=== PATIENT | female | born 2000 | race African-American/Black ===

== ENCOUNTER 2021-05-31 22:54 | Inpatient (IN) | payer OTHER, SELFPAY ==
[2021-05-31] VITALS (11 sets, daily range): BP systolic 136–202; BP diastolic 107–159; PULSE 115–166; O2SAT 84–100
[2021-05-31] MEDS: LABETALOL HCL INJ 100 MG/20 ML VIAL (23:00)
[2021-05-31 23:12] LABS: Basophils Absolute Auto 0.1 K/mm3 (0.0-0.1); Basophils Percent Auto 0.3 % (0.2-1.2); Eosinophils Absolute Auto 0.1 K/mm3 (0-0.3); Eosinophils Percent Auto 0.7 % (0-4.4); Hematocrit 44.6 % (37.0-47.0); Hemoglobin 13.7 g/dL (12.0-15.0); Immature Granulocyte Absolute 0.08 K/mm3 (0.00-0.031); Immature Granulocyte Percent A 0.5 % (0-0.5); Lymphocytes Absolute Auto 4.63 K/mm3 (0.9-3.2); Lymphocytes Percent Auto 29.6 % (18.3-44.2); Mean Corpuscular HGB Conc 30.7 g/dl (32-36); Mean Corpuscular Hemoglobin 25.9 pg (26-34); Mean Corpuscular Volume 84.5 fl (80-100); Mean Platelet Volume 11.9 fl (7.4-10.4); Monocytes Absolute Auto 1.5 K/mm3 (0.1-0.6); Monocytes Percent Auto 9.7 % (2.6-8.5); Neutrophils Absolute Auto 9.3 K/mm3 (1.3-6.7); Neutrophils Percent Auto 59.2 % (45.5-73.1); Nucleated Red Blood Cells Perc 0.1 % (0.0-0.2); Platelet Count Result 143 k/mm3 (150-375); Red Blood Count 5.28 M/mm3 (4.2-5.4); Red Cell Distribution Width 16.8 % (11.5-14.5); White Blood Count 15.7 K/mm3 (4.5-10.0)
[2021-05-31 23:22] LABS: INR 0.9; Prothrombin Time 12.1 Seconds (11.1-14.7)
[2021-05-31 23:23] LABS: Partial Thromboplastin Time 27.1 SECONDS (22.3-36.8)
[2021-06-01] VITALS (70 sets, daily range): BP systolic 136–176; BP diastolic 83–118; PULSE 67–94; RESP 14–20; TEMP 36.1–36.8; O2SAT 99–100; BMI 35.7
[2021-06-01 00:04] LABS: HIV 1/2 Ab P24 Ag Result Negative (Negative)
[2021-06-01 00:15] LABS: Albumin Level 3.1 g/dL (3.5-5.1); Alkaline Phosphatase 267 U/L (38-126); Anion Gap 15 mmol/L (8-16); Aspartate Amino Transferase 73 U/L (14-36); Bilirubin,Total 0.4 mg/dL (0.2-1.3); Blood Urea Nitrogen 9 mg/dL (7-17); Calcium 8.7 mg/dL (8.4-10.2); Carbon Dioxide 13 mmol/L (22-30); Chloride 107 mmol/L (98-107); Estimated Glomerular Filt Rate > 60; Glucose 113 mg/dL (65-110); Potassium 3.5 mmol/L (3.4-5.0); Sodium 135 mmol/L (137-145)
[2021-06-01 00:20] LABS: Alanine Aminotransferase 48 U/L (4-35)
[2021-06-01] MEDS: KETOROLAC 30 MG/ML VIAL (*BKC) IV PUSH ×3 (00:27→14:51)
--- NOTE | 2021-06-01 00:39 | PM.IMHP ---
H&P: HPI History of Present Illness Date/Time: 06/01/21 00:39 Chief Complaint: eclampsia insufficient care intrauterine at term Narrative: 20 yo at 39w2d who presents to the ED with contractions. Pt was transferred to L&D. Upon arrival to L&D pt had a witnessed seizure. Pt BP was noted to be severe range. Pt has a history of 2 prior c-sections. 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 That subsequently at 11 days of life. Pt did not have any elevated BP in her outpatient visits this . Pt only had 4 visits in this . Her last visit was at 25w3d. Pt received her limited care in [place], [place]. Review of Systems Cardiovascular: Cardiovascular: Denies chest pain, Denies leg edema, Denies palpitations, Denies dyspnea and Denies dyspnea on exertion Respiratory: Respiratory: Denies cough, Denies dyspnea and Denies dyspnea on exertion Gastrointestinal: Gastrointestinal: Denies abdominal pain, Denies constipation, Denies diarrhea, Denies nausea and Denies vomiting Genitourinary: Genitourinary: Denies hematuria, Denies urinary frequency, Denies dysuria, Denies pelvic pain, Denies urinary incontinence and Denies vaginal discharge Neurologic: Reports system reviewed and no additional complaints, except as documented Psychiatric: Psychiatric: Reports no additional psychiatric complaints Endocrine: Endocrine: Denies palpitations Meds Vital Signs Vital Signs - 24 hr 05/31/21 22:43 05/31/21 22:46 05/31/21 22:47 Pulse Rate Blood Pressure 161/140 H Pulse Oximetry 84 L 100 100 05/31/21 22:48 05/31/21 22:52 05/31/21 22:56 Pulse Rate 115 H 122 H Blood Pressure 202/159 H 136/107 H Pulse Oximetry 100 05/31/21 22:57 05/31/21 23:01 05/31/21 23:04 Pulse Rate Blood Pressure Pulse Oximetry 100 100 100 05/31/21 23:09 05/31/21 23:10 Pulse Rate 147 H Blood Pressure 186/132 H Pulse Oximetry 100 Exam Const: General: no acute distress Eyes: EOM: EOMs intact bilaterally Neck: Neck: supple Thyroid: thyroid normal Chest: Breast/axilla inspection: normal inspection of the breasts Breast/axilla palpation: normal palpation of the breasts, normal palpation of the axillae and no axillary lymphadenopathy Resp: Effort & Inspection: normal respiratory effort Auscultation: clear to auscultation bilaterally Cardio: Rate: regular rate Rhythm: regular rhythm GI: Inspection: non-distended and other (Gravid) GI Palp: Yes Soft to palpation, No Tenderness to palpation present (GI) and No Guarding due to palpation present (GI) Auscultation: normal bowel sounds : Speculum Exam - Vagina: No vaginal bleeding OB/external & speculum: external exam normal; No vaginal bleeding Skin: General skin exam: normal color and no rashes or lesions noted Neuro: Cognition (Neuro): normal cognition Speech: normal speech Extrem: General: normal to inspection Psych: Mental Status: mental status grossly normal Affect: normal affect H&P: Results Labs Labs: Short CBC 05/31/21 Range/Units 22:58 WBC 15.7 H (4.5-10.0) K/mm3 Hgb 13.7 (12.0-15.0) g/dL Hct 44.6 (37.0-47.0) % Plt Count 143 L (150-375) k/mm3 BMP 05/31/21 22:58 Sodium 135 L Potassium 3.5 Chloride 107 Carbon Dioxide 13 L BUN 9 Creatinine 1.00 Glucose 113 H Calcium 8.7 Liver Function 05/31/21 Range/Units 22:58 Total Bilirubin 0.4 (0.2-1.3) mg/dL AST 73 H (14-36) U/L ALT 48 H (4-35) U/L Alkaline Phosphatase 267 H (38-126) U/L Albumin 3.1 L (3.5-5.1) g/dL Assessment and Plan Assessment and plan (1) Supervision of high risk , unspecified, third trimester: Code(s): O09.93 - Supervision of high risk , unspecified, third trimester Status: Acute Assessment and Plan: 20 yo at 39w2d presents with contractions pt had witnessed seizure cvx noted to be 1 cm
[2021-06-01] MEDS: LACTATED RINGERS 1,000 ML 125 ML IV CONT (00:40)
--- NOTE | 2021-06-01 00:48 | W.PM.PROC2 ---
Procedure Note - Detailed Date of Procedure 06/01/21 Pre-op Diagnosis Contractions Post-op Diagnosis Same Procedure Performed low transverse section Surgeon Boy Qureshi MD Anesthesia Spinal and Epidural Description of Procedure The patient was taken to the operating room. A combined spinal epidural anesthesic was administered and found to be adequate at a t-10 level. The patient was placed in a supine position with a slight left lateral tilt. A eastman catheter was placed with return of clear urine. A Bovie grounding pad was placed. Surgical prep was performed and surgical drapes were placed. A surgical time out was performed. Pt was noted to have a keloid at the site of her previous Pfannenstiel incision. The keloid was removed at the time of incision. A Pfannenstiel skin incision was then made with the scalpel and carried through to the underlying layer of fascia. The fascia was then incised in the midline and the incision was extended laterally with the Mayes scissors. The superior aspect of the fascia was then grasped with the Sanjuanita clamps, elevated, and the underlying rectus muscles dissected off bluntly and sharply. Attention was then turned to the inferior aspect of this incision which, in a similar fashion, was grasped, tented up with the Sanjuanita clamps, and the rectus muscles dissected off both bluntly and sharply. The rectus muscles were then in the midline. The peritoneum was identified and entered bluntly. The peritoneal incision was then extended superiorly and inferiorly with good visualization of the bladder. The vesico-uterine serosa was identified and dissected to create a bladder flap. The bladder blade was reinserted. The uterus was inspected for rotation. A low-transverse uterine incision was made sharply with the scalpel and entry was made into the uterine cavity. An amniotomy was made and copious amounts of clear fluid were noted on return. The uterine incision was extended laterally bluntly. The bladder blade was removed and the fetus was delivered atraumatically. The nose and mouth were suctioned with a bulb syringe. The umbilical cord was clamped twice and cut. The infant was handed off to the waiting staff. At the time of the delivery, the had good color, tone and grimace. The cried with minimal stimulation. A second segment of umbilical cord was clamped and cut for cord blood gasses. Cord blood was collected for determination of the blood type and for direct Garcia. The placenta was delivered spontaneously without difficulty. The placenta appeared grossly normal and complete. The uterus was exteriorized and cleared of all clots and debris. The uterine incision was repaired using 0-monocryl suture in a running fashion. A second layer of 0 Monocryl suture was used in an imbricating fashion to obtain excellent hemostasis and uterine strength. The uterine closure was inspected for hemostasis. The posterior aspect of the uterus and the broad ligaments were inspected and the posterior cul-de-sac cleared of fluid and blood clots. The uterine closure was again inspected and found to be hemostatic. The uterus was returned to the abdominal cavity. The pericolic gutters were inspected and were cleared of all blood clots and debris. The uterine closure was then re inspected to ensure hemostasis as were all subfascial tissues. Hemaderm was placed over the hysterotomy. The peritoneum was closed using 3-0 vicryl in a running fashion. The fascia was reapproximated with 0-vicryl in a running fashion. The subcutaneous tissue was irrigated and hemostasis achieved with electrocautery. The skin was closed with 4-0 vicryl in a subcuticular fashion. A sterile dressing was applied to the wound. The patient tolerated the procedure well. Sponge, lap and needle counts were correct times three. The patient was taken to recovery in stable condition and without anticipated complications. Estimated Blood Loss -255.0 Urine O
--- NOTE | 2021-06-01 01:05 | WPDANESEPP ---
Anes - Eval Pre Procedure Procedure: Operation Date: 05/31/21 23:10 Proposed Procedures p Section - Boy Qureshi MD Date/Time: 06/01/21 01:05 Pre Op Diagnosis: Contractions Patient Data Age: 20 Gender: F Height: 1.57 m Weight: 88.63 kg Last Vital Signs Pulse 147 H 05/31/21 23:10 BP 186/132 H 05/31/21 23:10 Pulse Ox 100 05/31/21 23:09 Laboratory Tests 05/31/21 05/31/21 05/31/21 22:58 22:58 22:58 WBC 15.7 K/mm3 H K/mm3 (4.5-10.0) RBC 5.28 M/mm3 M/mm3 (4.2-5.4) Hgb 13.7 g/dL g/dL (12.0-15.0) Hct 44.6 % % (37.0-47.0) MCV 84.5 fl fl (80-100) MCH 25.9 pg L pg (26-34) MCHC 30.7 g/dl L g/dl (32-36) RDW 16.8 % H % (11.5-14.5) Plt Count 143 k/mm3 L k/mm3 (150-375) MPV 11.9 fl H fl (7.4-10.4) Immature Gran % (Auto) 0.5 % % (0-0.5) Neut % (Auto) 59.2 % % (45.5-73.1) Lymph % (Auto) 29.6 % % (18.3-44.2) [place] % (Auto) 9.7 % H % (2.6-8.5) Eos % (Auto) 0.7 % % (0-4.4) Baso % (Auto) 0.3 % % (0.2-1.2) Lymph # (Auto) 4.63 K/mm3 H K/mm3 (0.9-3.2) [place] # (Auto) 1.5 K/mm3 H K/mm3 (0.1-0.6) Eos # (Auto) 0.1 K/mm3 K/mm3 (0-0.3) Baso # (Auto) 0.1 K/mm3 K/mm3 (0.0-0.1) Abs Immat Gran (auto) 0.08 K/mm3 H K/mm3 (0.00-0.031) Absolute Neuts (auto) 9.3 K/mm3 H K/mm3 (1.3-6.7) Absolute Nucleated RBC 0.0 K/mm3 K/mm3 (0.0-0.012) Nucleated RBC % 0.1 % % (0.0-0.2) PT INR APTT Sodium 135 mmol/L L mmol/L (137-145) Potassium 3.5 mmol/L mmol/L (3.4-5.0) Chloride 107 mmol/L mmol/L (98-107) Carbon Dioxide 13 mmol/L L mmol/L (22-30) Anion Gap 15 mmol/L mmol/L (8-16) BUN 9 mg/dL mg/dL (7-17) Creatinine 1.00 mg/dL mg/dL (0.7-1.0) Estim Creat Clear Calc Not Reportable Estimated GFR > 60 (59 - ) Glucose 113 mg/dL H mg/dL (65-110) Calcium 8.7 mg/dL mg/dL (8.4-10.2) Total Bilirubin 0.4 mg/dL mg/dL (0.2-1.3) AST 73 U/L H U/L (14-36) ALT 48 U/L H U/L (4-35) Alkaline Phosphatase 267 U/L H U/L (38-126) Total Protein 7.0 g/dL g/dL (6.3-8.2) Albumin 3.1 g/dL L g/dL (3.5-5.1) RPR Pending HIV 1&2 Ab/P24 Ag 4thGn Blood Type Antibody Screen 05/31/21 05/31/21 05/31/21 22:58 22:58 23:06 WBC RBC Hgb Hct MCV MCH MCHC RDW Plt Count MPV Immature Gran % (Auto) Neut % (Auto) Lymph % (Auto) [place] % (Auto) Eos % (Auto) Baso % (Auto) Lymph # (Auto) [place] # (Auto) Eos # (Auto) Baso # (Auto) Abs Immat Gran (auto) Absolute Neuts (auto) Absolute Nucleated RBC Nucleated RBC % PT 12.1 Seconds Seconds (11.1-14.7) INR 0.9 APTT 27.1 SECONDS SECONDS (22.3-36.8) Sodium Potassium Chloride Carbon Dioxide Anion Gap BUN Creatinine Estim Creat Clear Calc Estimated GFR Glucose Calcium Total Bilirubin AST ALT Alkaline Phosphatase Total Protein Albumin RPR HIV 1&2 Ab/P24 Ag 4thGn Negative (Negative) Blood Type B Positive Antibody Screen Negative Patient hx anesthesia problems: none Family hx anesthesia problems: none
--- NOTE | 2021-06-01 01:50 | LDADM ---
This patient, Daisha Ludwig, was admitted to Labor/Delivery/Recovery 120 on 05/31/21 at 22:24. Plans for labor, pain management and were discussed with patient. Patient/family oriented to hospital policies and general routines including ID bracelet, bed and alarms, visiting hours, pain management, procedures, bathroom and other care routines, personal items, smoking policy, room service/diet and guest tray routines, security routines, and visiting hours. Patient/Family are encouraged to report perceived risks to care and to ask questions if they do not understand what they are told or what they should do. See OBIX for further documentation.
--- NOTE | 2021-06-01 01:53 | PC.NURSE ---
Pt arrived to OB per wheelchair from ED. Pt states she has been having contractions for the last 4 days, but does not have a Dr. here as she is from [facility]. Pt taken to room 104, instructed to change into gown and belly band, pt asked if she has had any PNC. She states she has an OB in [place] but hasn't seen him since March, this is her third with the first two being deliveries. Pt states the reason was high blood pressure with her last one and was not able to explain the reason with the first. Pt's first language is Swahili, she speaks broken [place]anian but is able to answer questions and seems to understand everything that is being asked. Pt was asked if she has any complications with this like high blood pressure, gestational diabetes, anything with her placenta. Pt denies any complications. Pt is assisted to bed, placed on fhr and toco monitors and explained a SVE will be performed. Pt is 1 cm dilated. As bed was being raised back to a sitting position from SVE, pt began to have a seizure. Pt's right arm was posturing, head tilted back, and pt drooling from her mouth. Pt was suctioned with a dontrell, 2 RN's at bedside. Seizure lasted approximately one minute. Pt's mother was at bedside,asked if pt has any hx of seizures and was told no. Pt 's mother began screaming and crying, falling onto pt. FHR tracing from [id number] at 130 intermittently. From [id number] pt was being repositioned after seizure and fhr monitoring was intermittent. was called (see OBIX notes by Xenia MARINELLI). Magnesium sulfate 6gram bolus started IV at 2253. tubing supervisor and FRONT OFFICE REPRESENTATIVE at bedside assisting with pt care including IV starts. Explained to pt we will be taking her back for an emergency section as soon as arrives. Pt and her mother screaming and saying her last baby from a c/s and she does not want to have one. Pt's bp is elevated, this is explained and the risk of her having another seizure that could cause maternal and or . Pt hysterical when arrived at bedside, he explained to pt that this is an emergency. As pt is being wheeled out of the room per the bed, her mother was screaming and pulling the bed back towards her. Pt's mother had been taken out to the hallway prior by roland MARINELLI and used the stratus to translate to make sure she understood the risk her daughter was facing staying . FHR was 145-150 from [id number] with good variability. Pt was given labetalol for her bp by Jelena LAY per 's orders. As pt was being transported to the OR she gave verbal consent for c/s stating she consents as long as she doesn't have to be put to sleep.
--- NOTE | 2021-06-01 03:45 | PC.NURSE ---
2318-Intermittent monitoring performed in OR, FHR 145
--- NOTE | 2021-06-01 04:02 | PC.NURSE ---
0400- called,informed of bp's. Orders received to follow hypertension protocol and call him if bp's stay 160's/110's
[2021-06-01] MEDS: LABETALOL HCL INJ 100 MG/20 ML VIAL 20 MG IV PUSH ×2 (04:22→10:11)
[2021-06-01 04:42] LABS: Amphetamine Screen Urine Negative (Negative); Barbiturate Screen Urine Negative (Negative); Benzodiazepines Screen Urine Negative (Negative); Cannabinoid Screen Urine Negative (Negative); Cocaine Screen Urine Negative (Negative); Methadone Screen Urine Negative (Negative); Opiate Screen Urine Negative (Negative); Phencyclidine Screen Urine Negative (Negative)
--- NOTE | 2021-06-01 05:09 | PC.NURSE ---
Please note daylight savings time when reviewing charting
[2021-06-01] MEDS: HYDROcodone/acetaminophen (*CRX) 10-325 MG TABLET 1 TAB (05:17)
[2021-06-01 07:43] LABS: Basophils Absolute Auto 0.1 K/mm3 (0.0-0.1); Basophils Percent Auto 0.3 % (0.2-1.2); Eosinophils Percent Auto 0.1 % (0-4.4); Hematocrit 34.2 % (37.0-47.0); Hemoglobin 11.4 g/dL (12.0-15.0); Immature Granulocyte Absolute 0.11 K/mm3 (0.00-0.031); Immature Granulocyte Percent A 0.6 % (0-0.5); Immature Platelet Fraction Pct 14.4 % (0.9-11.2); Lymphocytes Absolute Auto 2.36 K/mm3 (0.9-3.2); Mean Corpuscular HGB Conc 33.3 g/dl (32-36); Mean Corpuscular Volume 78.1 fl (80-100); Mean Platelet Volume 12.8 fl (7.4-10.4); Monocytes Absolute Auto 1.3 K/mm3 (0.1-0.6); Monocytes Percent Auto 6.8 % (2.6-8.5); Neutrophils Absolute Auto 15.8 K/mm3 (1.3-6.7); Neutrophils Percent Auto 80.2 % (45.5-73.1); Platelet Count Result 132 k/mm3 (150-375); Red Blood Count 4.38 M/mm3 (4.2-5.4); Red Cell Distribution Width 16.1 % (11.5-14.5); White Blood Count 19.7 K/mm3 (4.5-10.0)
[2021-06-01 07:51] LABS: Alanine Aminotransferase 35 U/L (4-35); Albumin Level 2.4 g/dL (3.5-5.1); Alkaline Phosphatase 219 U/L (38-126); Anion Gap 0 mmol/L (8-16); Aspartate Amino Transferase 57 U/L (14-36); Bilirubin,Total < 0.1 mg/dL (0.2-1.3); Blood Urea Nitrogen 10 mg/dL (7-17); Calcium 7.3 mg/dL (8.4-10.2); Carbon Dioxide 23 mmol/L (22-30); Chloride 103 mmol/L (98-107); Estimated CRCL calculation 89 ml/min; Estimated Glomerular Filt Rate > 60; Glucose 97 mg/dL (65-110); Potassium 4.1 mmol/L (3.4-5.0); Sodium 126 mmol/L (137-145); Uric Acid 9.1 mg/dL (2.5-7.5)
[2021-06-01] MEDS: SIMETHICONE 80 MG TAB.CHEW PO (08:03)
[2021-06-01] MEDS: MAGNESIUM SULF 20GM/WATER500ML 500 ML 50 MG IV CONT ×2 (08:04→17:09)
--- NOTE | 2021-06-01 11:10 | PM.OBPNVD ---
OB - PN: Subj Subjective Date/time seen: 06/01/21 11:10 Interval history: Patient doing well this AM. she has not yet ambulated out of bed. She has tolerated PO. She reports adequate pain control. Her bleeding is normal and she reports normal lochia. She denies fever, chills, N/V. She has not yet passed flatus. Pt is currently tolerating on magnesium and tolerating it well. She has had adequate diuresis. She has required two doses of IV antihypertensives overnight. She denies any SOB and chest pain. Patient comments: no complaints and pain well controlled; no flatus present OB - PN: Obj Data Labs CBC & Chem 7: 06/01/21 07:33 06/01/21 07:33 Labs: Laboratory Results - last 24 hr 05/31/21 05/31/21 05/31/21 22:58 22:58 22:58 WBC 15.7 H RBC 5.28 Hgb 13.7 Hct 44.6 MCV 84.5 MCH 25.9 L MCHC 30.7 L RDW 16.8 H Plt Count 143 L MPV 11.9 H Immature Gran % (Auto) 0.5 Neut % (Auto) 59.2 Lymph % (Auto) 29.6 [place] % (Auto) 9.7 H Eos % (Auto) 0.7 Baso % (Auto) 0.3 Lymph # (Auto) 4.63 H [place] # (Auto) 1.5 H Eos # (Auto) 0.1 Baso # (Auto) 0.1 Abs Immat Gran (auto) 0.08 H Absolute Neuts (auto) 9.3 H Absolute Nucleated RBC 0.0 Nucleated RBC % 0.1 % Immature Plt Fraction PT INR APTT Sodium 135 L Potassium 3.5 Chloride 107 Carbon Dioxide 13 L Anion Gap 15 BUN 9 Creatinine 1.00 Estim Creat Clear Calc Not Reportable Estimated GFR > 60 Glucose 113 H Uric Acid Calcium 8.7 Total Bilirubin 0.4 AST 73 H ALT 48 H Alkaline Phosphatase 267 H Total Protein 7.0 Albumin 3.1 L Urine Opiates Screen Urine Methadone Screen Ur Barbiturates Screen Ur Phencyclidine Scrn Ur Amphetamine Screen U Benzodiazepines Scrn Urine Cocaine Screen U Cannabinoids Screen HIV 1&2 Ab/P24 Ag 4thGn Blood Type B Positive Antibody Screen Negative 05/31/21 05/31/21 06/01/21 22:58 23:06 03:42 WBC RBC Hgb Hct MCV MCH MCHC RDW Plt Count MPV Immature Gran % (Auto) Neut % (Auto) Lymph % (Auto) [place] % (Auto) Eos % (Auto) Baso % (Auto) Lymph # (Auto) [place] # (Auto) Eos # (Auto) Baso # (Auto) Abs Immat Gran (auto) Absolute Neuts (auto) Absolute Nucleated RBC Nucleated RBC % % Immature Plt Fraction PT 12.1 INR 0.9 APTT 27.1 Sodium Potassium Chloride Carbon Dioxide Anion Gap BUN Creatinine Estim Creat Clear Calc Estimated GFR Glucose Uric Acid Calcium Total Bilirubin AST ALT Alkaline Phosphatase Total Protein Albumin Urine Opiates Screen Negative Urine Methadone Screen Negative Ur Barbiturates Screen Negative Ur Phencyclidine Scrn Negative Ur Amphetamine Screen Negative U Benzodiazepines Scrn Negative Urine Cocaine Screen Negative U Cannabinoids Screen Negative HIV 1&2 Ab/P24 Ag 4thGn Negative Blood Type Antibody Screen 06/01/21 06/01/21 07:33 07:33 WBC 19.7 H RBC 4.38 Hgb 11.4 L Hct 34.2 L MCV 78.1 L D MCH 26.0 MCHC 33.3 RDW 16.1 H Plt Count 132 L MPV 12.8 H Immature Gran % (Auto) 0.6 H Neut % (Auto) 80.2 H Lymph % (Auto) 12.0 L [place] % (Auto) 6.8 Eos % (Auto) 0.1 Baso % (Auto) 0.3 Lymph # (Auto) 2.36 [place] # (Auto) 1.3 H Eos # (Auto) 0.0 Baso # (Auto) 0.1 Abs Immat Gran (auto) 0.11 H Absolute Neuts (auto) 15.8 H Absolute Nucleated RBC 0.0 Nucleated RBC % 0.0 % Immature Plt Fraction 14.4 H PT INR APTT Sodium 126 L Potassium 4.1 Chloride 103 Carbon Dioxide 23 Anion Gap 0 L BUN 10 Creatinine 0.90 Estim Creat Clear Calc 89 Estimated GFR > 60 Glucose 97 Uric Acid 9.1 H Calcium 7.3 L Total Bilirubin < 0.1 L AST 57 H ALT 35 Alkaline Phosphatase 219 H Total Protein
[2021-06-01] MEDS: LACTATED RINGERS 1,000 ML 75 ML IV CONT (13:32)
[2021-06-01] MEDS: HYDROcodone/acetaminophen (*CRX) 5-325 MG TABLET 1 TAB PO (17:10)
[2021-06-01] MEDS: DOCUSATE SODIUM 100 MG CAPSULE PO (17:11)
[2021-06-01] MEDS: LABETALOL HCL 100 MG TABLET 200 MG PO (21:24)
[2021-06-02] VITALS (9 sets, daily range): BP systolic 127–154; BP diastolic 66–98; PULSE 85–100; RESP 16–18; TEMP 36.2–36.8; O2SAT 99–100
[2021-06-02] MEDS: HYDROcodone/acetaminophen (*CRX) 5-325 MG TABLET 1 TAB PO ×3 (00:32→16:10)
[2021-06-02] MEDS: KETOROLAC 30 MG/ML VIAL (*BKC) IV PUSH (00:33)
[2021-06-02 05:36] LABS: Basophils Percent Auto 0.1 % (0.2-1.2); Eosinophils Absolute Auto 0.1 K/mm3 (0-0.3); Hematocrit 24.1 % (37.0-47.0); Hemoglobin 7.7 g/dL (12.0-15.0); Immature Granulocyte Absolute 0.05 K/mm3 (0.00-0.031); Immature Granulocyte Percent A 0.6 % (0-0.5); Immature Platelet Fraction Pct 9.5 % (0.9-11.2); Lymphocytes Absolute Auto 1.77 K/mm3 (0.9-3.2); Mean Corpuscular Hemoglobin 26.6 pg (26-34); Mean Corpuscular Volume 83.4 fl (80-100); Mean Platelet Volume 11.1 fl (7.4-10.4); Monocytes Absolute Auto 0.7 K/mm3 (0.1-0.6); Monocytes Percent Auto 8.3 % (2.6-8.5); Neutrophils Absolute Auto 5.8 K/mm3 (1.3-6.7); Platelet Count Result 109 k/mm3 (150-375); Red Blood Count 2.89 M/mm3 (4.2-5.4); Red Cell Distribution Width 16.8 % (11.5-14.5); White Blood Count 8.4 K/mm3 (4.5-10.0)
[2021-06-02 07:39] LABS: Rapid Plasma Reagin Non-Reactive (NonReactive)
[2021-06-02] MEDS: LABETALOL HCL 100 MG TABLET 200 MG PO ×2 (08:37→21:12)
[2021-06-02] MEDS: DOCUSATE SODIUM 100 MG CAPSULE PO ×2 (08:38→16:10)
[2021-06-02] MEDS: IBUPROFEN 600 MG TABLET PO ×2 (08:38→16:12)
[2021-06-02] MEDS: POLYSACCHARIDE IRON COMPLEX 150 MG CAPSULE PO (08:39)
--- NOTE | 2021-06-02 11:31 | PCCCNOTE ---
Care Coordination Note: Pt. referred to CC for limited care and history of pt.'s passing with previous . Met with pt. and FOB at bedside. Pt. reports having an almost 6 year old child currently and one that at the hospital. She reports having emergency at 7 months and baby was still in hospital at the time. Provided support to pt. regarding infant passing. She and FOB report they are still not sure what caused 's , but that hospital mentioned the baby's belly was getting hard and needed surgery. She reports FOB brought all baby supplies here for pt. to go home with her mother for a period of time to rest up before coming back home to [place]. RN reports pt.'s oldest child was at hospital initially with FOB, but taken home to pt.'s mother's home. Pt. states she will assign infant a transplant immunologist here for now until she can transfer care back to [place]. Pt. reports being setup with [facility] in [facility]. She denies any community resource needs. She states her mother is a good support for help with baby. Pt. speaks Swahili, but also very fluent in [place] as well as FOB. Discussed situation with my tool room supervisor and no further CC needs at this time.
--- NOTE | 2021-06-02 12:06 | PM.OBPNVD ---
OB - PN: Subj Subjective Date/time seen: 06/02/21 12:06 Interval history: Patient doing well this AM. She is ambulating to the chair and restroom without difficulty. She has tolerated PO. She reports adequate pain control. Her bleeding is normal and she reports normal lochia. She denies fever, chills, N/V. Pt is s/p magnesium. She has had adequate diuresis. She denies any SOB and chest pain. Patient comments: no complaints, pain well controlled, tolerating diet and flatus present OB - PN: Obj Data Labs CBC & Chem 7: 06/02/21 05:18 06/01/21 07:33 Labs: Laboratory Results - last 24 hr 05/31/21 06/02/21 22:58 05:18 WBC 8.4 RBC 2.89 L Hgb 7.7 L D Hct 24.1 L MCV 83.4 D MCH 26.6 MCHC 32.0 RDW 16.8 H Plt Count 109 L MPV 11.1 H Immature Gran % (Auto) 0.6 H Neut % (Auto) 69.0 Lymph % (Auto) 21.0 [place] % (Auto) 8.3 Eos % (Auto) 1.0 Baso % (Auto) 0.1 L Lymph # (Auto) 1.77 [place] # (Auto) 0.7 H Eos # (Auto) 0.1 Baso # (Auto) 0.0 Abs Immat Gran (auto) 0.05 H Absolute Neuts (auto) 5.8 Absolute Nucleated RBC 0.0 Nucleated RBC % 0.0 % Immature Plt Fraction 9.5 RPR Non-reactive OB - PN A/P Plan day: 1 Plan: routine care Comments: patient doing well H/H 7.10/12, asymptomatic, will start iron supplementation. repeat CBC in AM s/p mangesium diuresing well mild range BP on labetalol 200 mg BID continue to monitor incision C/D/I eastman removed, voiding spontaneously continue routine post op care Time Spent With Patient Time: Total time spent is greater than 50% in coordination of care (as documented) at patient's floor/unit and/or counseling patient: Time with patient: less than 15 minutes Review of Systems Constitutional: Constitutional: Reports no additional constitutional complaints Cardiovascular: Cardiovascular: Reports no additional cardiovascular complaints Respiratory: Respiratory: Reports no additional respiratory complaints Gastrointestinal: Gastrointestinal: Reports no additional gastrointestinal complaints Genitourinary: Genitourinary: Reports no additional female genitourinary complaints Exam Const: General: comfortable and no acute distress Resp: Effort & Inspection: normal respiratory effort Auscultation: clear to auscultation bilaterally Cardio: Rate: regular rate GI: GI Palp: Yes Soft to palpation, Yes Tenderness to palpation present (GI) (around incision ) and No Guarding due to palpation present (GI) Auscultation: normal bowel sounds Other: incision C/D/I, covered with Dermabond Psych: Appearance: grossly normal Mental Status: mental status grossly normal Affect: normal affect
[2021-06-02] MEDS: SIMETHICONE 80 MG TAB.CHEW PO ×2 (16:10→21:16)
--- NOTE | 2021-06-02 19:34 | WPDANLDNPN2 ---
Anes-Prog Note L&D-Neuraxial Date/Time: 06/02/21 19:34 Neuraxial medications: intrathecal PF morphine Opiod-related complaints: none Patient feedback: Patient satisfied with post-operative pain management.
--- NOTE | 2021-06-02 19:35 | WPDANLDPN2 ---
Anes-Prog Note L&D Date/Time: 06/02/21 19:35 Comfortable throughout: section Neuraxial method: spinal Epidural/Spinal procedure site: clean & non-tender Neuro status: Neuro function grossly intact. Cardiovascular status: normal Respiratory status: normal Airway patency: baseline Mental status: baseline Post-Op hydration status: normal Vital Signs: Last Vital Signs Temp 36.8 C 06/02/21 16:13 Pulse 95 06/02/21 16:13 Resp 16 06/02/21 16:13 BP 127/73 06/02/21 16:13 Pulse Ox 100 06/02/21 16:13 Pain score (VAS): 0 I/O: Intake & Output 06/02/21 06/02/21 06/02/21 07:59 15:59 23:59 Intake Total 100 Output Total 1100 Balance -1000 Post-procedural complaints: none Patient feedback: Patient satisfied with anesthetic care.
[2021-06-02] MEDS: HYDROcodone/acetaminophen (*CRX) 10-325 MG TABLET 1 TAB PO (21:16)
[2021-06-03 05:20] VITALS: BP 139/73; PULSE 100; RESP 16; TEMP 36.9
[2021-06-03] MEDS: IBUPROFEN 600 MG TABLET PO ×2 (05:29→13:09)
[2021-06-03 05:57] LABS: Basophils Percent Auto 0.2 % (0.2-1.2); Eosinophils Absolute Auto 0.1 K/mm3 (0-0.3); Eosinophils Percent Auto 1.5 % (0-4.4); Hematocrit 25.2 % (37.0-47.0); Immature Granulocyte Absolute 0.03 K/mm3 (0.00-0.031); Immature Granulocyte Percent A 0.4 % (0-0.5); Immature Platelet Fraction Pct 7.4 % (0.9-11.2); Lymphocytes Absolute Auto 1.86 K/mm3 (0.9-3.2); Lymphocytes Percent Auto 23.1 % (18.3-44.2); Mean Corpuscular HGB Conc 31.7 g/dl (32-36); Mean Corpuscular Hemoglobin 26.8 pg (26-34); Mean Corpuscular Volume 84.3 fl (80-100); Mean Platelet Volume 11.6 fl (7.4-10.4); Monocytes Absolute Auto 0.6 K/mm3 (0.1-0.6); Monocytes Percent Auto 6.8 % (2.6-8.5); Neutrophils Absolute Auto 5.5 K/mm3 (1.3-6.7); Nucleated Red Blood Cells Perc 0.2 % (0.0-0.2); Platelet Count Result 140 k/mm3 (150-375); Red Blood Count 2.99 M/mm3 (4.2-5.4); Red Cell Distribution Width 17.2 % (11.5-14.5); White Blood Count 8.1 K/mm3 (4.5-10.0)
[2021-06-03 06:02] LABS: Alanine Aminotransferase 18 U/L (4-35); Albumin Level 2.3 g/dL (3.5-5.1); Alkaline Phosphatase 165 U/L (38-126); Anion Gap 0 mmol/L (8-16); Aspartate Amino Transferase 27 U/L (14-36); Bilirubin,Total < 0.1 mg/dL (0.2-1.3); Blood Urea Nitrogen 14 mg/dL (7-17); Calcium 7.2 mg/dL (8.4-10.2); Carbon Dioxide 27 mmol/L (22-30); Chloride 106 mmol/L (98-107); Estimated CRCL calculation 79 ml/min; Estimated Glomerular Filt Rate > 60; Glucose 78 mg/dL (65-110); Potassium 4.6 mmol/L (3.4-5.0); Sodium 133 mmol/L (137-145)
[2021-06-03 07:45] VITALS: BP 158/81; PULSE 96; RESP 16; TEMP 37; O2SAT 100
[2021-06-03 08:42] VITALS: PULSE 60
[2021-06-03] MEDS: DOCUSATE SODIUM 100 MG CAPSULE PO (08:42)
[2021-06-03] MEDS: MULTIVIT/MIN/PREN/FOL AC/IRON TABLET 1 TAB PO (08:42)
[2021-06-03] MEDS: POLYSACCHARIDE IRON COMPLEX 150 MG CAPSULE PO (08:42)
[2021-06-03] MEDS: LABETALOL HCL 100 MG TABLET 200 MG PO (08:42)
[2021-06-03] MEDS: HYDROcodone/acetaminophen (*CRX) 5-325 MG TABLET 1 TAB PO ×2 (08:43→13:08)
--- NOTE | 2021-06-03 08:53 | PM.OBDSVD ---
DS: Admitting Diagnosis Discharge Date 06/03/21 Admitting Diagnosis insufficient care intrauterine at term eclampsia h/o prior x2 DS: Discharge Diagnosis Discharge Diagnosis (1) Supervision of high risk , unspecified, third trimester: Code(s): O09.93 - Supervision of high risk , unspecified, third trimester Status: Acute (2) Insufficient care: Code(s): O09.30 - Supervision of with insufficient care, unspecified trimester Status: Acute (3) Eclampsia: Code(s): O15.9 - Eclampsia, unspecified as to time period Status: Acute (4) History of section complicating : Code(s): O34.219 - Maternal care for unspecified type scar from previous delivery Status: Acute (5) History of pre-eclampsia in prior , currently : Code(s): O09.299 - Supervision of with other poor reproductive or obstetric history, unspecified trimester Status: Acute OB - DS: Summary Hospital Course Hospital Course: 20 yo at 39w2d who presents in active labor. Pt had an eclamptic seizure upon arrival. Pt had insufficient care and had not been since since 25w. Pt reports a history of preeclampsia and HELLP syndrome. She also had prior x2. OB Procedures : None OB Procedures Intrapartum: OB Procedures: : None Peripartum Data Infant Delivery Method: Section Procedures: Procedures Operation Date: 05/31/21 23:10 Actual Procedure Side Surgeon p Section Boy Qureshi MD complications: none Status at Discharge Functional status at discharge: independent ambulation Overall status at discharge: patient is progressing back to baseline Time Spent with Patient Time attestation: Total time spent providing and/or coordinating discharge services: Time spent: Less than 30 minutes Exam Const: General: cooperative and healthy appearing Orientation/consciousness: patient oriented x3 Limitations: no limitations Resp: Effort & Inspection: normal respiratory effort and able to speak in complete sentences Auscultation: clear to auscultation bilaterally Cardio: Rate: regular rate Rhythm: regular rhythm GI: Inspection: incision (pfannenstiel incision healing appropriately ) GI Palp: Yes Soft to palpation, Yes Tenderness to palpation present (GI), No Guarding due to palpation present (GI) and No Rebound tenderness present Auscultation: normal bowel sounds Rectal Exam: deferred Psych: Appearance: grossly normal Mental Status: mental status grossly normal DS: Data Data Completed and Pending Pending studies at discharge: Pending at discharge 06/01/21 03:24 Surgical [PTH] Routine Labs on day of discharge: Labs from last 24 hours 06/03/21 06/03/21 05:27 05:27 WBC 8.1 RBC 2.99 L Hgb 8.0 L Hct 25.2 L MCV 84.3 MCH 26.8 MCHC 31.7 L RDW 17.2 H Plt Count 140 L MPV 11.6 H Immature Gran % (Auto) 0.4 Neut % (Auto) 68.0 Lymph % (Auto) 23.1 [place] % (Auto) 6.8 Eos % (Auto) 1.5 Baso % (Auto) 0.2 Lymph # (Auto) 1.86 [place] # (Auto) 0.6 Eos # (Auto) 0.1 Baso # (Auto) 0.0 Abs Immat Gran (auto) 0.03 Absolute Neuts (auto) 5.5 Absolute Nucleated RBC 0.0 Nucleated RBC % 0.2 % Immature Plt Fraction 7.4 Sodium 133 L Potassium 4.6 Chloride 106 Carbon Dioxide 27 Anion Gap 0 L BUN 14 Creatinine 1.10 H Estim Creat Clear Calc 79 Estimated GFR > 60 Glucose 78 Calcium 7.2 L Total Bilirubin < 0.1 L AST 27 ALT 18 Alkaline Phosphatase 165 H Total Protein 5.0 L Albumin 2.3 L Discharge Plan Discharge Discharging Clinician: Boy Qureshi Patient Disposition: Home, Self-Care Activity: as tolerated and pelvic rest Diet: regular Wound Care Instructions: other - see discharge instructions
--- NOTE | 2021-06-03 12:57 | PC.NURSE ---
0730 - Introductions made and consulted with patient on her desire to feed her . Mother states she want to bottle feed. She attempted to breast one time. She states her other children had trouble latching and it hurt, so she doesn't want to breastfeed . Reported to primary RN.
--- NOTE | 2021-06-03 20:12 | PC.NURSE ---
1200 Patient viewed the discharge video Mother & Baby Care, The First Two Weeks . Patient was given the opportunity and encouraged to ask questions. Patient verbalized understanding of information shared and has been given the mother/baby guide for home reference.
[2021-06-04 11:15] VITALS: BP 154/99; PULSE 95; RESP 20; TEMP 36.8; O2SAT 100
== END 2021-06-03 14:10 | disposition home or self-care (01) | DRG 540 ==
LOC: ANHLDR 23:04 → ANHOB2 06-02 07:05 → ANHLDR 06-02 14:04 → ANHOB2 06-02 14:04
PROVIDERS: Admitting Provider Student in an Organized Health Care Education/Training Program; Visit Provider Student in an Organized Health Care Education/Training Program
PROC: (CPT 59514; principal; 2021-05-31 23:10)
DX: O34.211 Maternal care for low transverse scar from previous cesarean delivery (principal); Z37.0 Single live birth; Z3A.39 39 weeks gestation of pregnancy; O15.1 Eclampsia complicating labor
CPT/HCPCS: 36415; 80053; 80307; 84550; 85025; 85055; 85610; 85730; 86592; 86703; 86850; 86900; 86901; 88307; A9270; G0432; J0131; J1885; J2274; J2370; J2405; J2590; J3475; J7120

== ENCOUNTER 2023-04-15 15:07 | Observation (INO) | payer OTHER, SELFPAY ==
[2023-04-15] VITALS (7 sets, daily range): BP systolic 108–158; BP diastolic 59–101; PULSE 71–93; RESP 16–21; TEMP 36.2–36.3; O2SAT 100; BMI 25.9
--- NOTE | ~2023-04-15 | MR_ITS ---
MRI of the brain Clinical History: Seizure Technique: Axial and sagittal T1-weighted images were acquired. These were followed by axial T2-weigh chasity, diffusion weighted, gradient, and FLAIR images. Coronal T1-weighted and T2-weighted images were also performed. Following intravenous administration of 13 cc MultiHance gadolinium, T1-weighted fat- sat imaging was performed in the axial, coronal, and sagittal planes. Findings: There is no abnormal signal seen in the brain parenchyma. No acute infarct, intracranial he morrhage, or mass lesion. Ventricles and subarachnoid spaces are unremarkable. Orbits are unremarkable. Paranasal sinuses and m astoid air cells are clear. Major intracranial flow voids are intact. Sagittal midline structures are intact. No evidence for mesial temporal sclerosis. No abnormal postcontrast enhancement identified. IMPRESSION: Unremarkable exam. Reviewed, dictated and finalized at location . GE HOUSE ATTENDANT IMPRESSION: Unremarkable exam.
--- NOTE | ~2023-04-15 | US_ITS ---
Limited Abdominal Sonogram: Real-time sonographic imaging of the right upper quadrant was performed. Clinical History: Cholecystitis Findings: The liver appears normal with no evidence of mass lesion or bile duct dilatation. Main por natividad vein demonstrates normal direction of flow. The gallbladder is well distended, and appears normal with no evidence of gallstone or wall thickening. The common bile duct measures 2 mm. The visualize d pancreas, aorta, and IVC are unremarkable. Right kidney measures 9.5 cm in length, without evidence of hydronephrosis. Impression: No significant abnormality seen. Reviewed, dictated and finalized at location . RICT COURT ADMINISTRATOR Impression: No significant abnormality seen.
--- NOTE | ~2023-04-15 | CT_ITS ---
EXAMINATION: CT brain wo con DATE: 04/15/2023 16:24 INDICATION: Seizure-like activity. TECHNIQUE: Computed tomography (CT) of the head was performed without intravenous contrast. The mA wa s adjusted according to patient size. Iterative reconstruction technique was employed. The dose-lengt h product was 605.33 mGy-cm. COMPARISON: None FINDINGS: There is no intracranial hemorrhage, acute infarction, or abnormal intracranial mass lesion . The ventricles are normal in size. The paranasal sinuses are clear. The orbits are normal. The mast oid air cells are normal. IMPRESSION: 1. Normal brain. Reviewed, dictated and finalized at location E. TOR KETTLE OPERATOR IMPRESSION: 1. Normal brain.
--- NOTE | ~2023-04-15 | XR_ITS ---
EXAMINATION: XR chest 2V DATE: 04/15/2023 15:27 INDICATION: Right chest pain. TECHNIQUE: Frontal and lateral views of the chest were obtained. COMPARISON: None. FINDINGS: There is no pneumonia, pleural effusion, or pneumothorax. The heart size is normal. IMPRESSION: 1. No acute cardiopulmonary disease. Reviewed, dictated and finalized at location E. D ADOLESCENT PSYCHIATRIST
--- NOTE | 2023-04-15 15:09 | ECG_ITS ---
Measurements Intervals [place] Rate: 94 P: 68 TN: 138 QRS: 71 QRSD: 83 T: 51 QT: 327 QTc: 410 Interpretive Statements SINUS RHYTHM RSR' IN V1 OR V2, PROBABLY NORMAL VARIANT BORDERLINE ECG NO PREVIOUS ECG AVAILABLE FOR COMPARISON Electronically Signed On 04-15-2023 15:15:15 DIRT CONTRACTOR by Nahum Mansfield D.O.
[2023-04-15] MEDS: ASPIRIN 81 MG CHEWABLE TABLET 324 MG PO (15:44)
[2023-04-15 15:47] LABS: Basophils Percent Auto 0.5 % (0.2-1.2); Eosinophils Absolute Auto 0.1 K/mm3 (0-0.3); Eosinophils Percent Auto 0.8 % (0-4.4); Hematocrit 41.3 % (37.0-47.0); Hemoglobin 13.4 g/dL (12.0-15.0); Immature Granulocyte Absolute 0.01 K/mm3 (0.00-0.031); Immature Granulocyte Percent A 0.2 % (0-0.5); Lymphocytes Absolute Auto 2.07 K/mm3 (0.9-3.2); Lymphocytes Percent Auto 34.8 % (18.3-44.2); Mean Corpuscular HGB Conc 32.4 g/dl (32-36); Mean Corpuscular Hemoglobin 27.2 pg (26-34); Mean Corpuscular Volume 83.8 fl (80-100); Mean Platelet Volume 11.2 fl (7.4-10.4); Monocytes Absolute Auto 0.5 K/mm3 (0.1-0.6); Monocytes Percent Auto 8.9 % (2.6-8.5); Neutrophils Absolute Auto 3.3 K/mm3 (1.3-6.7); Neutrophils Percent Auto 54.8 % (45.5-73.1); Platelet Count Result 206 k/mm3 (150-375); Red Blood Count 4.93 M/mm3 (4.2-5.4); Red Cell Distribution Width 13.1 % (11.5-14.5)
[2023-04-15 15:57] LABS: Prothrombin Time 13.1 Seconds (11.1-14.7)
[2023-04-15 15:59] LABS: Alanine Aminotransferase 27 U/L (6-35); Albumin Level 4.6 g/dL (3.5-5.1); Alkaline Phosphatase 112 U/L (38-126); Anion Gap 10 mmol/L (8-16); Aspartate Amino Transferase 23 U/L (14-36); Bilirubin,Total 0.8 mg/dL (0.2-1.3); Blood Urea Nitrogen 11 mg/dL (7-17); Calcium 9.5 mg/dL (8.4-10.2); Carbon Dioxide 25 mmol/L (22-30); Chloride 106 mmol/L (98-107); Estimated CRCL calculation 100 ml/min; Estimated Glomerular Filt Rate > 60; Glucose 98 mg/dL (65-110); Lipase 107 U/L (23-300); Potassium 3.8 mmol/L (3.4-5.0); Sodium 141 mmol/L (137-145)
[2023-04-15 16:10] LABS: Troponin I < 0.012 ng/mL (0.000-0.034)
[2023-04-15 16:44] LABS: Ethanol < 10 mg/dL (<10)
--- NOTE | 2023-04-15 17:34 | ED.GENADULT ---
HPI - General Adult General Chief complaint: Chest Pain Stated complaint: chest pain Time Seen by Provider: 04/15/23 15:23 History of Present Illness HPI narrative: Patient is a 22-year-old female who presents ER with reports of neck and chest pain aching in nature. Ongoing chronically. She has been taking naproxen for it. Denies any trauma. No exertional chest discomfort. No pain with deep breath. No hemoptysis. No runny nose. Patient has had some sore throat. Two days ago she was swabbed at an urgent care and started on azithromycin. She is unsure if she has strep throat. Yesterday patient had 5 episodes where she started having head shaking on the left side and then had left arm and left leg extension and shaking as well. These would last 30 minutes at a time. No tongue biting or loss of bladder. Patient denies seizure history but did have an eclamptic seizure 2 years ago while here for delivery. After the possible seizure activity yesterday patient's has been loaded her car and drove her down here from [place], [place]. Related Data Allergies Allergy/AdvReac Type Severity Reaction Status Date / Time No Known Allergies Allergy Verified 04/15/23 15:41 Review of Systems Review of Systems: All systems reviewed & are unremarkable except as noted in HPI and below Constitutional: Constitutional: Reports no additional constitutional complaints ENT: Reports system reviewed and no additional complaints, except as documented Cardiovascular: Cardiovascular: Reports no additional cardiovascular complaints Gastrointestinal: Gastrointestinal: Reports no additional gastrointestinal complaints Genitourinary: Genitourinary: Reports no additional female genitourinary complaints Integumentary/Breasts: Skin/Breast: Reports system reviewed and no additional complaints, except as docu Neurologic: Denies syncope, Denies headache(s), Denies focal weakness and Denies numbness Comments: Seizure PMFSH Past Medical History Medical History (Updated 04/15/23 @ 18:12 by Sudhakar Henry MD) Eclampsia History of pre-eclampsia in prior , currently Insufficient care Supervision of high risk , unspecified, third trimester Surgical History Surgical History (Updated 06/01/21 @ 01:07 by Bsesie Jacobs CRNA) History of section complicating Social History Social History Smoking status: Never smoker Exam Narrative: GENERAL: Well-appearing, well-nourished, and in no acute distress. HEAD: Normocephalic, atraumatic. EYES: PERRL and EOMI. ENT: Mucous membranes moist. Normal-appearing posterior oropharynx. CHEST: Clear to auscultation. No respiratory distress. HEART: Regular rate and rhythm. Normal peripheral pulses. ABDOMEN: Soft, nontender, nondistended. EXTREMITIES: Normal range of motion. No edema. SKIN: Warm, dry, no rash. NEURO: No focal deficits. Alert and oriented x3. PSYCH: Normal mood and affect. Course Course Emergency Course: Discussed case with Neurology. Concerning for seizure. Patient will be started on Keppra 1 g load and then 500 mg twice a day. Patient will require MRI and EEG and it is recommended patient be observed in the hospital. Patient accepted by the hospitalist service. Patient and significant other did informed of diagnosis and treatment plan and verbalized understanding. We also discussed lab and imaging results. Vital Signs Vital signs: Vital Signs Temperature 97.2 F L 04/15/23 15:15 Pulse Rate 93 04/15/23 15:15 Respiratory Rate 18 04/15/23 15:15 Blood Pressure 158/89 H 04/15/23 15:15 Pulse Oximetry 100 04/15/23 15:15 Oxygen Delivery Room Air 04/15/23 15:15 Temperature 97.2 F L 04/15/23 15:15 Pulse Rate 82 04/15/23 17:15 Respiratory Rate 16 04/15/23 17:15 Blood Pressure 135/81 04/15/23 17:15 Pulse Oximetry 100 04/15/23 17:15 Oxygen Delivery Room Air 04/15/23 15:40
[2023-04-15 17:48] LABS: Amphetamine Screen Urine Negative (Negative); Barbiturate Screen Urine Negative (Negative); Benzodiazepines Screen Urine Negative (Negative); Cannabinoid Screen Urine Negative (Negative); Cocaine Screen Urine Negative (Negative); Methadone Screen Urine Negative (Negative); Opiate Screen Urine Negative (Negative); Phencyclidine Screen Urine Negative (Negative)
[2023-04-15 17:57] LABS: Appearance Urine Clear (Clear); Bacteria Urine None Seen /hpf; Bilirubin Urine Negative (Negative); Blood Urine Negative (Negative); Color Urine Yellow (Yellow); Glucose Urine UA Negative (Negative); Ketones Urine Negative (Negative); Leukocyte Esterase Ur 1+ LEU/UL (Negative); Mucus Urine Present /lpf; Need Manual Microscopic Reviewed; Nitrate Urine Negative (Negative); Non Pathogenic Casts 0-2; Protein Urine Negative (Negative); RBC Urine 0-2 /hpf (0-2); Squamous Epithelial Cell Urine Moderate /hpf (Few); WBC Urine 0-5 /hpf
[2023-04-15 18:00] LABS: Add Urine Microscopic? YES
--- NOTE | 2023-04-15 18:18 | ECG_ITS ---
Measurements Intervals [place] Rate: 80 P: 53 IN: 136 QRS: 57 QRSD: 85 T: 38 QT: 336 QTc: 389 Interpretive Statements SINUS RHYTHM NORMAL ECG COMPARED TO ECG 04/15/2023 15:12:52 NO SIGNIFICANT CHANGES Electronically Signed On 04-15-2023 18:58:55 [employer] SE[employer]ATION PLANT MANAGER by Nahum Mansfield D.O.
[2023-04-15] MEDS: levETIRAcetam 1000MG/NACL100ML 1,000 MG/100 ML BAG 400 MG IVPB (18:23)
[2023-04-15 19:03] LABS: Troponin I < 0.012 ng/mL (0.000-0.034)
--- NOTE | 2023-04-15 19:06 | PC.NURSE ---
report given to Abigail MARINELLI, all questions answered
--- NOTE | 2023-04-15 20:02 | PM.IMHP ---
H&P: HPI History of Present Illness Date/Time: 04/15/23 20:02 Chief Complaint: Seizure-like Activity Narrative: 22 y/o F presents here with CP, neck pain, upper abdominal pain, and abnormal movements of left side (upper and lower extremity) with PMH of preeclamptic seizure and HELLP. Patient presents here via personal vehicle from home in [facility]. Reporting midsternal chest pain that radiates to her R shoulder, R upper/mid back, and R neck. No alleviating or aggravating factors. Pain is intermittent for the past year. Also experiencing epigastric pain for the past 2 weeks and is intermittent. Worsens with heavy foods - Fufu (corn flour muffin) and spicy foods. +Constipation, last BM was Wednesday. Denies any nausea or vomiting. Newly started experiencing shaking of left upper extremity, left lower extremity, and left side of head turned down and also had shaking. 1 episode witnessed by fiance and lasted 20 mins and 5-6 witnessed by patient's good friend which lasted 6-10 mins. Patient has no recollection of events. Fiance reports patient was acutely altered after events - saying people were calling someone, crying more, thought they hit someone when they were driving here. No loss of bowel or bladder. none witnessed since arrival. No current auditory or visual hallucinations. Fiance reports patient was experiencing visual hallucinations after seizure-like activity. R sided DARNELL, intermittent dizziness. Recently diagnosed with throat infection , unsure if this was Strep, but was prescribed Azithromycin 250 mg, took first dose only of 500 mg. Initial VS: afebrile, HR 95, RR 20, 100% on room air, BP 154/99. ED workup revealed no leukocytosis, no anemia,, no significant electrolyte derangements, creatinine 0.8, troponin negative x2, UA not indicative of UTI, UDS negative, and ETOH negative. CXR showed no acute cardiopulmonary disease. Head CT showed brain. Currently experiencing a R sided DARNELL that is frontal and wraps around to R occiput/neck. +Fatigue. Review of Systems Review of Systems: All systems reviewed & are unremarkable except as noted in HPI and below PMFSH Past Medical History Medical History (Updated 04/15/23 @ 21:02 by Anabella Lopez, CONTROL AREA OPERATOR) Eclampsia HELLP (hemolytic anemia/elev liver enzymes/low platelets in ) History of pre-eclampsia in prior , currently Insufficient care Supervision of high risk , unspecified, third trimester Surgical History Surgical History (Updated 06/01/21 @ 01:07 by Bessie Jacobs CRNA) History of section complicating Social History Social History Smoking status: Never smoker Alcohol intake: never Substance use: never Do You Feel Safe in your Home?: Yes Lack of Transportation: No Lack of Food: Never True Current Housing: I Have Housing Concerned About Future Housing: No Difficulty Paying Gas/Electric Bills: No Difficulty Paying for Meds: No Currently Unemployed: No Education: High School Diploma/GED Difficulty w/ Childcare or Family Care: No Spiritual care concerns: No Meds Home Medications and Allergies Home Medications Medication Instructions Recorded Confirmed Type No Home Medications 04/15/23 04/15/23 History Allergies Allergy/AdvReac Type Severity Reaction Status Date / Time No Known Allergies Allergy Verified 04/15/23 21:12 Vital Signs Vital Signs - 24 hr 04/15/23 15:15 04/15/23 15:40 04/15/23 15:40 Temperature 97.2 F L Pulse Rate 93 89 Respiratory Rate 18 20 Blood Pressure 158/89 H 149/101 H Pulse Oximetry 100 100 100 Oxygen Delivery Room Air Room Air 04/15/23 17:15 04/15/23 18:15 04/15/23 18:41 Temperature Pulse Rate 82 85 80 Respiratory Rate 16 19 17 Blood Pressure 135/81 122/72 108/59 L Pulse Oximetry 100 100 100 Oxygen Delivery Exam Const: General: comfortable and no acute distress Other: , femal
--- NOTE | 2023-04-15 20:59 | ADMGEN ---
This patient, Daisha Ludwig, was admitted to Medical Room 346-01. Patient/family oriented to hospital policies and general routines including ID bracelet, bed and alarms, visiting hours, pain management, procedures, bathroom and other care routines, personal items, smoking policy, room service/diet, and visiting hours. Information on how to activate the Rapid Response Team has been discussed. Patient/Family are encouraged to report perceived risks to care and to ask questions if they do not understand what they are told or what they should do.
[2023-04-15] MEDS: diphenhydrAMINE HCl INJ 50 MG/ML VIAL 25 MG IV PUSH (22:04)
[2023-04-15] MEDS: PROCHLORPERAZINE EDISYLATE 10 MG/2 ML VIAL IV PUSH (22:04)
[2023-04-15] MEDS: KETOROLAC 30 MG/ML VIAL (*BKC) IV PUSH (22:04)
[2023-04-15] MEDS: LACTATED RINGERS 1,000 ML 999 ML IV CONT (22:05)
[2023-04-15] MEDS: DOCUSATE SODIUM 100 MG CAPSULE PO (22:08)
[2023-04-15 23:02] LABS: Influenza A QL RT-PCR Negative (Negative); Influenza B QL RT-PCR Negative (Negative); RSV RNA, RT-PCR Negative (Negative); SARS-CoV-2 RNA PCR Negative (Negative)
[2023-04-16] VITALS (8 sets, daily range): BP systolic 110–124; BP diastolic 67–69; PULSE 80–93; RESP 16–21; TEMP 36.4–36.6; O2SAT 98–100
[2023-04-16] MEDS: levETIRAcetam 500MG/NACL 100ML 500 MG/100 ML BAG 400 MG IVPB ×2 (05:07→17:23)
[2023-04-16] MEDS: AZITHROMYCIN 250 MG TABLET PO (11:04)
[2023-04-16] MEDS: PANTOPRAZOLE SODIUM IV 40 MG VIAL IV PUSH (11:04)
[2023-04-16] MEDS: DOCUSATE SODIUM 100 MG CAPSULE PO ×2 (11:04→21:34)
--- NOTE | 2023-04-16 15:44 | WPDNEURCNPN ---
Assessment and Plan Assessment and plan (1) Seizure-like activity: Code(s): R56.9 - Unspecified convulsions Status: Acute Plan Daisha is a 22 year old female with a history of eclampsia presenting due to seizure-like activity. She has had a prior seizure in the setting of eclampsia about two years ago. MRI brain is negative. There is no family history of seizures. 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 - Recommend continuing Keppra 500mg BID - Routine EEG is pending - No driving until seizure free for at least 6 months -- discussed with patient - Will need outpatient follow-up in Neurology clinic about 2-3 months after discharge. Consult date: 04/16/23 HPI: Daisha Ludwig is a 22 year old female with a history of eclampsia presenting for evaluation of seizure like activity. Patient had several episodes on day of presentation. Per her SO, she has shaking of the LUE and LLE with head turned to the left. One episode was witnessed by her SO and 5-6 similar episodes were witnessed by a friend. Afterwards she is altered/confused. The episodes lated 6-10 minutes at a time. She was also having chest pain, epigastric pain, constipation. No other signs of illness, although patient was diagnosed with throat infection recently and prescribed azithromycin. She denies any fevers.Patient was brought to [facility] ED for further evaluation. Her ELVIA was elevated to 154/99. Lab work was unrevealing. UDS and UA were negative. CT head showed no abnormalities. MRI brain is normal as well. Patient had a seizure while with her daughter about two years ago. She has not had any seizures prior to that. She was diagnosed with eclampsia reportedly. Patient denies any family history of seizures. She had normal developmental milestones as a a child. There were no complications when her mother delivered her, but her mother did not receive any care at the time of the . Patient drives but does not currently work. She has two children who are both healthy. Review of Systems Review of Systems: All systems reviewed & are unremarkable except as noted in HPI and below PMFSH Past Medical History Medical History Eclampsia HELLP (hemolytic anemia/elev liver enzymes/low platelets in ) History of pre-eclampsia in prior , currently Insufficient care Supervision of high risk , unspecified, third trimester Surgical History Surgical History History of section complicating Social History Social History Smoking status: Never smoker Alcohol intake: never Substance use: never Do You Feel Safe in your Home?: Yes Lack of Transportation: No Lack of Food: Never True Current Housing: I Have Housing Concerned About Future Housing: No Difficulty Paying Gas/Electric Bills: No Difficulty Paying for Meds: No Currently Unemployed: No Education: High School Diploma/GED Difficulty w/ Childcare or Family Care: No Spiritual care concerns: No Meds Home Medications and Allergies Home Medications Medication Instructions Recorded Confirmed Type No Home Medications 04/15/23 04/15/23 History Allergies Allergy/AdvReac Type Severity Reaction Status Date / Time No Known Allergies Allergy Verified 04/15/23 21:12 Vital Signs Vital Signs - 24 hr 04/15/23 17:15 04/15/23 18:15 04/15/23 18:41 Temperature Pulse Rate 82 85 80 Respiratory Rate 16 19 17 Blood Pressure 135/81 122/72 108/59 L Pulse Oximetry 100 100 100 Oxygen Delivery 04/15/23 20:50 04/15/23 21:18 04/16/23 00:00 Temperature 36.3 C L Pulse Rate 77 71 93 Respiratory Rate 21 H Blood Pressure 141/86 H Pulse Oximetry 100 Oxygen Delivery 04/16/23 04:00 04/16/23 06:00 04/16/23 08:12 Temperature
--- NOTE | 2023-04-16 15:47 | PM.IMPN ---
Progress Note: A&P Assessment and Plan (1) Seizure-like activity: Code(s): R56.9 - Unspecified convulsions Status: Acute (2) Chest pain: Code(s): R07.9 - Chest pain, unspecified Status: Acute (3) Upper abdominal pain: Code(s): R10.10 - Upper abdominal pain, unspecified Status: Acute Plan This 22-year-old female presented with 5 episodes head shaking on the left side than left arm extension shaking lasting 15-20 minutes no tongue loss bladder. History of clamping seizure 2 years ago during labor no further seizures since then. Lives in [facility]. Labs in ED evaluation were unremarkable troponin negative UA negative UDS negative ethyl alcohol negative chest x-ray no acute cardiopulmonary disease. CT head was normal brain. Neurology consulted. Was started on Keppra 1 g load followed by 5 mg b.i.d.. MRI brain came back normal. She did have EEG which is pending report. Continue Keppra until further direction from the tool maker bench. Liver ultrasound negative completed for upper abdominal pain LFTs were normal lipase normal added on PPI. Subjective Date/time seen: 04/16/23 15:47 Interval history: Feels well. No further seizures. Done EEG earlier today. CT head and MRI negative Review of Systems Review of Systems: All systems reviewed & are unremarkable except as noted in HPI and below Exam Narrative: GENERAL: Well-appearing, well-nourished, and in no acute distress. HEAD: Normocephalic, atraumatic. EYES: PERRL and EOMI. ENT: Mucous membranes moist.? Normal-appearing posterior oropharynx. CHEST: Clear to auscultation.? No respiratory distress. HEART: Regular rate and rhythm.? ? Normal peripheral pulses. ABDOMEN: Soft, nontender, nondistended. EXTREMITIES: Normal range of motion.? No edema. SKIN: Warm, dry, no rash. NEURO: No focal deficits.? Alert and oriented x3. PSYCH: Normal mood and affect. Objective Data Vital Signs Vital Signs: Vital Signs - 24 hr 04/15/23 17:15 04/15/23 18:15 04/15/23 18:41 Temperature Pulse Rate 82 85 80 Respiratory Rate 16 19 17 Blood Pressure 135/81 122/72 108/59 L Pulse Oximetry 100 100 100 Oxygen Delivery 04/15/23 20:50 04/15/23 21:18 04/16/23 00:00 Temperature 97.4 F L Pulse Rate 77 71 93 Respiratory Rate 21 H Blood Pressure 141/86 H Pulse Oximetry 100 Oxygen Delivery 04/16/23 04:00 04/16/23 06:00 04/16/23 08:12 Temperature 97.8 F Pulse Rate 80 80 Respiratory Rate 20 Blood Pressure 115/68 Pulse Oximetry 99 98 Oxygen Delivery Room Air 04/16/23 14:00 Temperature 97.5 F L Pulse Rate 87 Respiratory Rate 16 Blood Pressure 110/67 Pulse Oximetry 99 Oxygen Delivery Intake/Output Intake/Output: Intake & Output 04/13/23 04/14/23 04/15/23 04/16/23 23:59 23:59 23:59 23:59 Intake Total 1100 100 Balance 1100 100 Meds/Results Medications: Active Medications Generic Name Dose Route Start Last Admin Trade Name Freq PRN Reason Stop Dose Admin Acetaminophen 650 mg 04/15/23 18:03 Acetaminophen 325 Mg Tablet PO Q4H PRN Mild Pain (1-3) or Fever Azithromycin 250 mg 04/16/23 09:00 04/16/23 11:04 Azithromycin 250 Mg Tablet PO 04/19/23 09:01 250 mg DAILY MELISSA Administration Docusate Sodium 100 mg 04/15/23 21:45 04/16/23 11:04 Docusate Sodium 100 Mg Capsule PO 100 mg Q12HR MELISSA Administration Levetiracetam 500 mg in 100 mls @ 400 mls/hr 04/16/23 06:00 04/16/23 05:22 Keppra Iv IVPB Infused Q12H MELISSA Infusion Ondansetron HCl 4 mg 04/15/23 18:03 Ondansetron Inj 4 Mg/2 Ml Vial IV PUSH Q4H PRN Nausea Pantoprazole Sodium 40 mg 04/16/23 09:00 04/16/23 11:04 Pantoprazole Sodium Iv 40 Mg Vial IV PUSH 40 mg QAM MELISSA Administration Polyethylene Glycol 17 gm 04/15/23 21:41 Polyethylene Glycol 3350 17 Gm Powd.Pack PO QAM PRN Constipation Radiology Results: ITS Impressions Chest X-Ray
[2023-04-17] VITALS: PULSE 91
[2023-04-17 04:00] VITALS: PULSE 95
[2023-04-17 06:00] VITALS: BP 136/77; PULSE 84; RESP 21; TEMP 36.9; O2SAT 100
[2023-04-17 08:00] VITALS: PULSE 81
[2023-04-17 08:25] VITALS: O2SAT 99
[2023-04-17] MEDS: AZITHROMYCIN 250 MG TABLET PO (10:21)
[2023-04-17] MEDS: PANTOPRAZOLE SODIUM IV 40 MG VIAL IV PUSH (11:29)
--- NOTE | 2023-04-17 11:43 | PM.DS ---
DS: Admitting Diagnosis Discharge Date 04/17/2023 Admitting Diagnosis seizure DS: Discharge Diagnosis Discharge Diagnosis (1) Seizure-like activity: Code(s): R56.9 - Unspecified convulsions Status: Acute (2) Chest pain: Code(s): R07.9 - Chest pain, unspecified Status: Acute (3) Upper abdominal pain: Code(s): R10.10 - Upper abdominal pain, unspecified Status: Acute DS: Summary Hospital Course Hospital Course: This 22-year-old female presented with 5 episodes head shaking on the left side than left arm extension shaking lasting 15-20 minutes no tongue bite or loss of bladder.? History of eclamptic seizure 2 years ago during labor no further seizures since then.? Lives in [facility].? Labs in ED evaluation were unremarkable troponin negative UA negative UDS negative ethyl alcohol negative chest x-ray no acute cardiopulmonary disease.? CT head was normal brain.? Neurology consulted.? Was started on Keppra 1 g load followed by 5 mg b.i.d..? MRI brain came back normal.? She did have EEG which is pending report.? Continue Keppra per neurology recommendations.? Liver ultrasound negative completed for upper abdominal pain LFTs were normal lipase normal added on PPI.okay to ma and have her fu with neurology as op basis Time Spent with Patient Time attestation: Total time spent providing and/or coordinating discharge services:30 mins Exam Narrative: GENERAL: Well-appearing, well-nourished, and in no acute distress. HEAD: Normocephalic, atraumatic. EYES: PERRL and EOMI. ENT: Mucous membranes moist.? Normal-appearing posterior oropharynx. CHEST: Clear to auscultation.? No respiratory distress. HEART: Regular rate and rhythm.? ? Normal peripheral pulses. ABDOMEN: Soft, nontender, nondistended. EXTREMITIES: Normal range of motion.? No edema. SKIN: Warm, dry, no rash. NEURO: No focal deficits.? Alert and oriented x3. PSYCH: Normal mood and affect. DS: Data Imaging Radiologist's impression: ITS Impressions Chest X-Ray 04/15/23 15:33 IMPRESSION: 1. No acute cardiopulmonary disease. Head CT 04/15/23 16:27 IMPRESSION: 1. Normal brain. Brain MRI 04/16/23 07:38 IMPRESSION: Unremarkable exam. Abdomen Ultrasound 04/16/23 07:48 Impression: No significant abnormality seen. Discharge Plan Discharge Attending physician on discharge: Helder Back Consulting providers: Kaylin Ley Discharging Clinician: Helder Back Anticipated Discharge Date/Time: 04/17/23 11:42 Patient Disposition: Home, Self-Care Activity: as tolerated Diet: regular Discharge Instructions: no driving until seziure free for six months fu with neurology in 2-3 months. call for appointment Patient Instructions: Antibiotic Form Stand Alone Forms: General Discharge Information Follow-up/Referrals: UNKNOWN,DOCTOR [Primary Care Provider] - 1 Week Discharge Medications: New levetiracetam [Keppra] 500 mg tablet 500 mg PO BID Qty: 60 0RF No Action No Home Medications Date of admission: 04/15/23 19:58 Primary Care Provider: UNKNOWN,DOCTOR Admitting Provider: Manpreet Romo Attending physician on admission: Manpreet Romo Condition: Stable
--- NOTE | 2023-04-21 10:25 | P.NEURO_ITS ---
Neurology EEG Report General Information Date of Study: 04/16/23 TEST eeg DIAGNOSIS seizures CONDITION OF RECORDING awake drowsy and sleep EEG NUMBER [id number] CLINICAL HISTORY patient is very lethargic history was given by his friend say patient started having pain radiating from right side of his head down the shoulder and upper extremity then began shaking of the left upper extremity and lower extremity as well. EEG DESCRIPTION Basic resting occipital frequency consists of a small amount of fairly well- organized low voltage 9 to 11 hertz per 2nd alpha admixed with low-voltage 15 to 18 hertz per 2nd beta. During drowsiness low-voltage beta activity seen diffusely admixed with waxing and waning alpha activity as well as 5 to 7 hertz per 2nd theta activity. Bilateral symmetrical sleep activity seen with symmetrical sleep spindles. Hyperventilation not done photic stimulation not done. Non paroxysmal. Nonfocal. Nonlateralizing. IMPRESSION No significant abnormalities noted.
== END 2023-04-17 11:53 | disposition home or self-care (01) ==
LOC: ANHED 18:12 → ANH3MED 04-16 08:15
PROVIDERS: Student in an Organized Health Care Education/Training Program; Admitting Provider Internal Medicine; Emergency Provider Emergency Medicine; Visit Provider Internal Medicine
DX: R56.9 Unspecified convulsions (principal); R07.9 Chest pain, unspecified; R10.10 Upper abdominal pain, unspecified; Z20.822 Contact with and (suspected) exposure to COVID-19
CPT/HCPCS: 36415; 70450; 70553; 71046; 76705; 80053; 80307; 81001; 81025; 83690; 84484; 85025; 85610; 85730; 87637; 93005; 95816; 96361; 96365; 96374; 96375; 99285; A9270; A9577; C9113; G0378; G0379; J0780; J1200; J1885; J1953; J7120